=== PATIENT | female | born 1955 | race Caucasian/White ===

== ENCOUNTER → 2022-07-26 | Outpatient (CLI) | payer OTHER ==
[2022-07-26 09:08] LABS: Basophils # (auto) 0 10 ^3/uL (0-0.2); Eosinophils # (auto) 0 10 ^3/uL (0-0.8); Eosinophils % (auto) 1.1 % (0.0-7.0); Hematocrit 42.5 % (36.0-46.0); Hemoglobin 14.6 g/dL (12.2-16.2); Lymphocytes # (auto) 1.3 10 ^3/uL (0.4-5.4); Lymphocytes % (auto) 28.8 % (10.0-50.0); Mean Corpuscular Hemoglobin 32.7 pg (28.0-32.0); Mean Corpuscular Hgb Conc. 34.4 g/dL (32.0-36.0); Mean Corpuscular Volume 95.2 fL (80.0-100.0); Monocytes # (auto) 0.3 10 ^3/uL (0-1.3); Monocytes % (auto) 6.6 % (0.0-12.0); Neutrophils # (auto) 2.9 10 ^3/uL (1.6-8.6); Neutrophils % (auto) 62.5 % (37.0-80.0); Red Blood Cells 4.47 10^6/uL (4.0-5.20); Red Cell Distribution Width 13.8 % (11.8-14.3); White Blood Cell 4.6 10^3/uL (4.4-10.8)
[2022-07-26 09:50] LABS: Potassium 3.6 mmol/L (3.5-5.1)
[2022-07-26 09:57] LABS: Albumin 3.7 g/dL (3.4-5.0); Bilirubin, Total 0.4 mg/dL (0.2-1.0); Calcium 9.1 mg/dL (8.5-10.1); Total Protein 7.5 g/dL (6.4-8.2)
== END | disposition home or self-care (01) ==
LOC: LAB 08:34
PROVIDERS: ATTEND Internal Medicine
DX: K29.60 Other gastritis without bleeding (principal); R79.9 Abnormal finding of blood chemistry, unspecified; E78.5 Hyperlipidemia, unspecified
CPT/HCPCS: 36415; 80053; 82465; 83036; 83718; 83721; 84443; 85025

== ENCOUNTER → 2022-10-19 | Outpatient (CLI) | payer OTHER ==
[2022-10-19 08:52] LABS: Urine Bacteria None Seen /hpf (None Seen); Urine WBC None Seen /hpf (0 - 5)
[2022-10-19 09:01] LABS: Basophils # (auto) 0.1 10 ^3/uL (0-0.2); Basophils % (auto) 1.4 % (0.0-2.0); Eosinophils # (auto) 0.1 10 ^3/uL (0-0.8); Eosinophils % (auto) 1.1 % (0.0-7.0); Hematocrit 43.1 % (36.0-46.0); Hemoglobin 14.6 g/dL (12.2-16.2); Lymphocytes # (auto) 1.5 10 ^3/uL (0.4-5.4); Lymphocytes % (auto) 27.9 % (10.0-50.0); Mean Corpuscular Hemoglobin 32.4 pg (28.0-32.0); Mean Corpuscular Hgb Conc. 33.9 g/dL (32.0-36.0); Mean Corpuscular Volume 95.5 fL (80.0-100.0); Monocytes # (auto) 0.3 10 ^3/uL (0-1.3); Monocytes % (auto) 5.8 % (0.0-12.0); Neutrophils # (auto) 3.4 10 ^3/uL (1.6-8.6); Neutrophils % (auto) 63.8 % (37.0-80.0); Nucleated Red Blood Cells % 0.1 %; Red Blood Cells 4.51 10^6/uL (4.0-5.20); White Blood Cell 5.3 10^3/uL (4.4-10.8)
[2022-10-19 09:33] LABS: Urine Specific Gravity 1.019 (1.001-1.035)
[2022-10-19 09:34] LABS: Urine Blood Negative /uL (Negative)
[2022-10-19 09:48] LABS: Albumin 3.4 g/dL (3.4-5.0); Calcium 8.9 mg/dL (8.5-10.1); Potassium 3.6 mmol/L (3.5-5.1)
[2022-10-19 09:53] LABS: BUN/Creatinine Ratio 23.1 (10.0-20.0); Bilirubin, Total 0.4 mg/dL (0.2-1.0); Total Protein 7.1 g/dL (6.4-8.2)
[2022-10-19 10:01] LABS: Folate (Folic Acid) > 24.00 ng/mL (5.38-24); T3 Total 1.02 ng/mL (0.60-1.81)
== END | disposition home or self-care (01) ==
LOC: LAB 08:43
PROVIDERS: ATTEND Internal Medicine
DX: Z00.00 Encounter for general adult medical examination without abnormal findings (principal); E78.5 Hyperlipidemia, unspecified; H53.9 Unspecified visual disturbance
CPT/HCPCS: 36415; 80053; 80061; 81001; 82306; 82550; 82607; 82746; 84436; 84443; 84480; 85025; 87086

== ENCOUNTER → 2023-03-15 | Outpatient (CLI) | payer OTHER ==
[2023-03-15 12:14] LABS: Basophils # (auto) 0 10 ^3/uL (0-0.2); Basophils % (auto) 0.2 % (0.0-2.0); Eosinophils # (auto) 0.1 10 ^3/uL (0-0.8); Hematocrit 45.5 % (36.0-46.0); Hemoglobin 15.5 g/dL (12.2-16.2); Lymphocytes # (auto) 1.3 10 ^3/uL (0.4-5.4); Lymphocytes % (auto) 25.5 % (10.0-50.0); Mean Corpuscular Hemoglobin 32.7 pg (28.0-32.0); Mean Corpuscular Volume 96.2 fL (80.0-100.0); Monocytes # (auto) 0.3 10 ^3/uL (0-1.3); Monocytes % (auto) 6.1 % (0.0-12.0); Neutrophils # (auto) 3.4 10 ^3/uL (1.6-8.6); Neutrophils % (auto) 67.2 % (37.0-80.0); Nucleated Red Blood Cells % 0.1 %; Red Blood Cells 4.73 10^6/uL (4.0-5.20); Red Cell Distribution Width 13.9 % (11.8-14.3); White Blood Cell 5.1 10^3/uL (4.4-10.8)
[2023-03-15 12:43] LABS: Alanine Aminotransferase 17 U/L (7-40); Alkaline Phosphatase 64 U/L (46-116); Anion Gap 5 (5-15); BUN/Creatinine Ratio 13.9 (10.0-20.0); Blood Urea Nitrogen 10 mg/dL (9-23); Calcium 9.2 mg/dL (8.5-10.1); Carbon Dioxide 32 mmol/L (20-30); Chloride 106 mmol/L (98-107); Glucose 84 mg/dL (74-106); Potassium 3.5 mmol/L (3.5-5.1); Sodium 143 mmol/L (136-145); Triglycerides 61 mg/dL (< 150)
[2023-03-15 12:44] LABS: Albumin 4.2 g/dL (3.2-4.8); Aspartate Aminotransferase 9 U/L (13-40); LDL Cholesterol 115 mg/dL (< 100)
[2023-03-15 12:45] LABS: Bilirubin, Total 0.7 mg/dL (0.2-1.0); Cholesterol 195 mg/dL (< 200); Creatine Kinase IFCC 64 U/L (34-145); HDL Cholesterol 72 mg/dL (40-59); Total Protein 7.3 g/dL (5.7-8.2)
[2023-03-15 14:31] LABS: Lipase 102 U/L (12-53)
== END | disposition home or self-care (01) ==
LOC: LAB 12:02
PROVIDERS: ATTEND Internal Medicine
DX: D47.3 Essential (hemorrhagic) thrombocythemia (principal); E78.5 Hyperlipidemia, unspecified; K29.60 Other gastritis without bleeding; R19.7 Diarrhea, unspecified
CPT/HCPCS: 36415; 80053; 80061; 82550; 83690; 84436; 84443; 85025; 87045; 87177

== ENCOUNTER → 2023-10-01 | Outpatient (CLI) | payer OTHER ==
[2023-10-01 10:56] LABS: Urine Bacteria None Seen /hpf (None Seen)
[2023-10-01 11:09] LABS: Basophils # (auto) 0 10 ^3/uL (0-0.2); Basophils % (auto) 0.7 % (0.0-2.0); Eosinophils # (auto) 0 10 ^3/uL (0-0.8); Eosinophils % (auto) 0.5 % (0.0-7.0); Hematocrit 44.5 % (36.0-46.0); Hemoglobin 14.9 g/dL (12.2-16.2); Lymphocytes # (auto) 1.1 10 ^3/uL (0.4-5.4); Lymphocytes % (auto) 21.6 % (10.0-50.0); Mean Corpuscular Hemoglobin 31.6 pg (28.0-32.0); Mean Corpuscular Hgb Conc. 33.6 g/dL (32.0-36.0); Monocytes # (auto) 0.3 10 ^3/uL (0-1.3); Monocytes % (auto) 5.4 % (0.0-12.0); Neutrophils # (auto) 3.7 10 ^3/uL (1.6-8.6); Neutrophils % (auto) 71.8 % (37.0-80.0); Nucleated Red Blood Cells % 0.1 %; Red Blood Cells 4.73 10^6/uL (4.0-5.20); White Blood Cell 5.2 10^3/uL (4.4-10.8)
[2023-10-01 12:47] LABS: Urine Blood Negative /uL (Negative); Urine Clarity Clear (Clear); Urine Color Light-Yellow (Yellow); Urine Protein, UAD Negative (Negative); Urine Specific Gravity 1.012 (1.001-1.035); Urine Urobilinogen Normal (Negative); Urine WBC <1 /hpf (0 - 5)
== END | disposition home or self-care (01) ==
LOC: LAB 10:44
PROVIDERS: ATTEND Internal Medicine
DX: R53.83 Other fatigue (principal)
CPT/HCPCS: 36415; 81001; 82306; 82607; 84436; 84443; 85025

== ENCOUNTER 2023-11-24 13:55 | Emergency (ER) | payer OTHER ==
[~2023-11-24] VITALS: Ht 154.9 cm; Wt 56.1 kg
[2023-11-24] MEDS: DICYCLOMINE HCL (10MG/ML) 2 ML AMPULE IM ONE (14:57)
[2023-11-24 15:28] LABS: Basophils # (auto) 0 10 ^3/uL (0-0.2); Basophils % (auto) 0.7 % (0.0-2.0); Eosinophils # (auto) 0.1 10 ^3/uL (0-0.8); Eosinophils % (auto) 0.9 % (0.0-7.0); Hematocrit 44.9 % (36.0-46.0); Hemoglobin 15.3 g/dL (12.2-16.2); Lymphocytes # (auto) 1.5 10 ^3/uL (0.4-5.4); Lymphocytes % (auto) 23.3 % (10.0-50.0); Mean Corpuscular Hemoglobin 32.4 pg (28.0-32.0); Mean Corpuscular Volume 95.4 fL (80.0-100.0); Monocytes # (auto) 0.5 10 ^3/uL (0-1.3); Monocytes % (auto) 7.5 % (0.0-12.0); Neutrophils # (auto) 4.3 10 ^3/uL (1.6-8.6); Neutrophils % (auto) 67.6 % (37.0-80.0); Nucleated Red Blood Cells % 0.1 %; Red Cell Distribution Width 14.2 % (11.8-14.3); White Blood Cell 6.4 10^3/uL (4.4-10.8)
[2023-11-24 15:43] LABS: Chloride 107 mmol/L (98-107); Sodium 143 mmol/L (136-145)
[2023-11-24 15:44] LABS: Anion Gap 4 (5-15); Calcium 9.6 mg/dL (8.7-10.4); Carbon Dioxide 32 mmol/L (20-30)
[2023-11-24 15:49] LABS: BUN/Creatinine Ratio 19.4 (10.0-20.0); Blood Urea Nitrogen 14 mg/dL (9-23); Glucose 99 mg/dL (74-106); Lipase 52 U/L (12-53)
[2023-11-24 16:06] LABS: Urine Bacteria FEW /hpf (None Seen); Urine Blood Negative /uL (Negative); Urine Clarity Clear (Clear); Urine Color Yellow (Yellow); Urine Mucus FEW (None Seen); Urine Protein, UAD Negative (Negative); Urine Specific Gravity 1.027 (1.001-1.035); Urine Urobilinogen Normal (Negative); Urine WBC <1 /hpf (0 - 5); Urine pH 5.5 (5.0-9.0)
[2023-11-24 16:57] VITALS: BP 120/69; PULSE 75; RESP 18; TEMP 98.4; O2SAT 97
== END 2023-11-24 16:58 | disposition home or self-care (01) ==
LOC: ER 13:55
DX: R10.84 Generalized abdominal pain (principal)
CPT/HCPCS: 36415; 80048; 81001; 83690; 85025; 96372; 99283; J0500

== ENCOUNTER → 2024-02-26 | Outpatient (CLI) | payer OTHER | END | disposition home or self-care (01) | LOC: LAB 12:21 | PROVIDERS: ATTEND Internal Medicine | DX: N39.0 Urinary tract infection, site not specified (principal) | CPT/HCPCS: 87086 ==

== ENCOUNTER → 2024-03-13 | Outpatient (CLI) | payer OTHER | END | disposition home or self-care (01) | LOC: LAB 12:42 | PROVIDERS: ATTEND Internal Medicine | DX: Z12.11 Encounter for screening for malignant neoplasm of colon (principal) | CPT/HCPCS: 82270 ==

== ENCOUNTER → 2024-06-19 | Outpatient (CLI) | payer MEDICAID ==
[2024-06-19 09:04] LABS: Chloride 103 mmol/L (98-107); Potassium 3.6 mmol/L (3.5-5.1); Sodium 141 mmol/L (136-145)
[2024-06-19 09:05] LABS: Anion Gap 2 (5-15); Calcium 9.5 mg/dL (8.7-10.4)
[2024-06-19 09:10] LABS: BUN/Creatinine Ratio 15.2 (10.0-20.0); Blood Urea Nitrogen 10 mg/dL (9-23); Glucose 93 mg/dL (74-106); Triglycerides 70 mg/dL (< 150)
[2024-06-19 09:11] LABS: Creatinine, Urine 47.01 mg/dL (30.0-125.0)
[2024-06-19 09:13] LABS: Carbon Dioxide 36 mmol/L (20-31); Cholesterol 229 mg/dL (< 200); HDL Cholesterol 74 mg/dL (40-59); LDL Cholesterol 154 mg/dL (< 100)
[2024-06-19 09:15] LABS: Micro Albumin < 3.0 mg/L (<30.0)
== END | disposition home or self-care (01) ==
LOC: LAB 08:17
PROVIDERS: ATTEND Internal Medicine
DX: E78.5 Hyperlipidemia, unspecified (principal); R73.9 Hyperglycemia, unspecified
CPT/HCPCS: 36415; 80048; 80061; 82043; 82570; 83036

== ENCOUNTER → 2024-09-23 | Outpatient (CLI) | payer MEDICAID ==
[2024-09-23 08:40] LABS: Alanine Aminotransferase 17 U/L (7-40); Albumin 4.2 g/dL (3.2-4.8); Alkaline Phosphatase 73 U/L (46-116); Anion Gap 7 (5-15); Aspartate Aminotransferase 16 U/L (13-40); Bilirubin, Total 0.6 mg/dL (0.2-1.0); Blood Urea Nitrogen 9 mg/dL (9-23); Calcium 9.4 mg/dL (8.7-10.4); Carbon Dioxide 31 mmol/L (20-31); Chloride 104 mmol/L (98-107); Glucose 102 mg/dL (74-106); Potassium 3.8 mmol/L (3.5-5.1); Sodium 142 mmol/L (136-145); Triglycerides 46 mg/dL (< 150)
[2024-09-23 08:42] LABS: Cholesterol 225 mg/dL (< 200); HDL Cholesterol 78 mg/dL (40-59); LDL Cholesterol 135 mg/dL (< 100)
== END | disposition home or self-care (01) ==
LOC: LAB 07:25
PROVIDERS: ATTEND Internal Medicine
DX: E03.9 Hypothyroidism, unspecified (principal); E78.5 Hyperlipidemia, unspecified; R73.9 Hyperglycemia, unspecified
CPT/HCPCS: 36415; 80053; 80061; 84436; 84443; 84480

== ENCOUNTER 2024-10-03 13:34 | Inpatient (IN) | payer MEDICAID, OTHER ==
[~2024-10-03] VITALS: Ht 154.9 cm; Wt 67.3 kg
[2024-10-03 15:10] LABS: Basophils # (auto) 0.1 10 ^3/uL (0-0.2); Eosinophils # (auto) 0.1 10 ^3/uL (0-0.8); Eosinophils % (auto) 0.9 % (0.0-7.0); Hematocrit 44.1 % (36.0-46.0); Lymphocytes # (auto) 1.5 10 ^3/uL (0.4-5.4); Lymphocytes % (auto) 25.9 % (10.0-50.0); Mean Corpuscular Hemoglobin 31.8 pg (28.0-32.0); Mean Corpuscular Hgb Conc. 33.9 g/dL (32.0-36.0); Mean Corpuscular Volume 93.6 fL (80.0-100.0); Monocytes # (auto) 0.5 10 ^3/uL (0-1.3); Monocytes % (auto) 7.9 % (0.0-12.0); Neutrophils # (auto) 3.7 10 ^3/uL (1.6-8.6); Neutrophils % (auto) 64.3 % (37.0-80.0); Nucleated Red Blood Cells % 0.2 %; Platelet Count (auto) 130 10^3/uL (140-450); Red Blood Cells 4.71 10^6/uL (4.0-5.20); Red Cell Distribution Width 14.8 % (11.8-14.3); White Blood Cell 5.8 10^3/uL (4.4-10.8)
[2024-10-03 15:24] LABS: Alanine Aminotransferase 19 U/L (7-40); Albumin 4.3 g/dL (3.2-4.8); Alkaline Phosphatase 64 U/L (46-116); Anion Gap 5 (5-15); Aspartate Aminotransferase 16 U/L (13-40); BUN/Creatinine Ratio 22.9 (10.0-20.0); Bilirubin, Total 0.4 mg/dL (0.2-1.0); Blood Urea Nitrogen 16 mg/dL (9-23); Calcium 9.5 mg/dL (8.7-10.4); Chloride 105 mmol/L (98-107); Glucose 103 mg/dL (74-106); Lipase 48 U/L (12-53); Potassium 3.9 mmol/L (3.5-5.1); Sodium 142 mmol/L (136-145); Total Protein 6.9 g/dL (5.7-8.2)
--- NOTE | 2024-10-03 15:25 | DVH ---
INDICATION: PAIN TECHNIQUE: US GALLBLADDER Multiple real-time sonographic images of the abdomen were obtained. COMPARISON: None FINDINGS: The liver is homogenous in echogenicity. The liver measures 14.25 cm. No intrahepatic bili jamshid ductal dilatation is noted. The gallbladder wall measures 0.11 cm and is unremarkable. No gallstones or sludge in the gallbladd er. There does appear to be multiple small polyp. Patient states she has a history of gallbladder quyen yps. The common duct measures 0.49 cm negative sonographic howard's sign is elicited The right kidney measures 10.4 cm. No hydronephrosis. The pancreas is not well visualized due to obscuration from bowel gas. The visualized portions of the IVC and aorta are grossly unremarkable. IMPRESSION: 1. Liver measures 14.25 cm long. 2. Multiple gallbladder polyps negative sonographic Howard's sign.
[2024-10-03 15:26] LABS: Carbon Dioxide 32 mmol/L (20-31)
--- NOTE | 2024-10-03 15:47 | ED.PDOC ---
GI ASSESSMENT HPI Comments This is a 69-year-old female who comes in with chief complaint of abdominal pain. The patient was states that she has been having epigastric pain off and on for the past several years with no radiation. Now she states that the pain has been more persistent and rated as a 5/10. She is currently awaiting some procedures ordered by GI when she was seen by them on 08/19. She denies any nausea, vomiting or diarrhea at this time. The patient was able to ambulate into the emergency department's without any difficulty. Chief Complaint: Abdominal Pain Time Seen by MD: 13:37 Primary Care Provider: MICHAELA Reviewed Notes: Nurses Notes, Medications, Allergies (No allergies to medications) Allergies: Coded Allergies: NO KNOWN ALLERGIES (Unverified , 11/24/23) Information Source: Patient Mode of Arrival: Ambulatory Timing: Months Duration: Intermittent Prehospital treatment: None Quality: Aching, Sharp Vomitus: Bilious Stool: Normal Severity: Moderate Recent: None Recent Hx of: None Pain Location: Epigastric Modifying Factors: Nothing Associated sign and symptoms: Abdominal Pain Past Medical History PAST MEDICAL HISTORY: Anxiety, Gallstones, High Lipids Past Medical History (Other): Gastritis, pancreatitis, diverticulitis Surgical History: Denies all surgeries [employer] History: No Pertinent [employer] History Family History Family History: Reviewed,noncontributory to illness, No family hx of Cancer, No family hx of DM, No family hx of Heart genny, No family hx of HTN, No family hx ofKidney genny, No family hx of Liver genny, No family hx of Lung genny, No family hx of Stroke Social History Smoker: Non-Smoker Alcohol: Denies ETOH Use Drugs: Denies Drug Use Lives In: Home Constitutional: denies: chills, diaphoresis, fatigue, fever, malaise, sweats, weakness, others EENTM: denies: blurred vision, double vision, ear bleeding, ear discharge, ear drainage, ear pain, ear ringing, eye pain, eye redness, hearing loss, mouth pain, mouth swelling, nasal discharge, nose bleeding, nose congestion, nose pain, photophobia, tearing, throat pain, throat swelling, voice changes, others Respiratory: denies: cough, hemoptysis, orthopnea, SOB at rest, shortness of breath, SOB with excertion, stridor, wheezing, others Cardiovascular: denies: chest pain, dizzy spells, diaphoresis, Dyspnea on exertion, edema, irregular heart beat, left arm pain, lightheadedness, palpitations, PND, syncope, others Gastrointestinal: reports: abdominal pain; denies: abdomen distended, blood streaked bowels, constipated, diarrhea, dysphagia, difficulty swallowing, hematemesis, melena, nausea, poor appetite, poor fluid intake, rectal bleeding, rectal pain, vomiting, others Genitourinary: denies: abnormal vagina bleeding, burning, dyspareunia, dysuria, flank pain, frequency, hematuria, incontinence, pain, , vagina discharge, urgency, others Neurological: denies: dizziness, fainting, headache, left sided numbness, left sided weakness, numbness, paresthesia, pre-existing deficit, right sided numbness, right sided weakness, seizure, speech problems, tingling, tremors, weakness, others Musculoskeletal: denies: back pain, gout, joint pain, joint swelling, muscle pain, muscle stiffness, neck pain, others Integumetry: denies: bruises, change in color, change in hair/nails, dryness, laceration, lesions, lumps, rash, wounds, others Allergic/Immunocompromised: denies: Difficulty Healing, Frequent Infections, Hives, Itching, others Hematologic/Lymphatic: denies: anemia, blood clots, easy bleeding, easy bruising, swollen glands, others Endocrine: denies: excessive hunger, excessive sweating, excessive thirst, excessive urination, flushing, intolerance to cold, intolerance to heat, unexplained weight gain, unexplained weight loss, others Psychiatric: denies: anxiety, bipolar disorder, depression, hopeless, panic disorder, schizophrenia, sleepless, suicidal, others Physical Exam General Appearance: Moderate Distress HEENT: Normal ENT Inspection, Pharynx Normal, TMs Normal Neck: Full Range of Motion, Non-Tender, Normal, Normal Inspection Respiratory: Chest Non-Tender, Lungs Clear, No Accessory Muscle Use, No Respiratory Distress, Normal Breath Sounds Cardiovascular: No Edema, No JVD, No Murmur, No Gallop, Normal Peripheral Pulses, Regular Rate/Rhythm Breast Exam: Deferred Gastrointestinal: Epigastric, No Organomegaly, No Pulsatile Mass, Normal Bowel Sounds, Soft, Tenderness Genitalia: Deferred Pelvic: Deferred Rectal: Deferred Extremities: No calf tenderness, Normal capillary refill, Normal inspection, Normal range of motion, Non-tender, No pedal edema Musculoskeletal : Apperance: Normal Neurologic: Alert, mercury washer II-XII nml as Tested, Motor Weakness, Normal Affect, Normal Mood, No Sensory Deficits Cerebellar Function: Normal Reflexes: Normal Skin: Dry, Normal Color, Warm Lymphatic: No Adenopathy Was a procedure done? Was a procedure done?: No GI differential Dx Differential Diagnosis: Appendicitis, Cholangitis, Cholecystitis, Gas tritis/PUD, Gastroenteritis, Pancreatitis, UTI, Electrolyte Imbalance X-Ray, Labs, Meds, VS Vital Signs Date Time Temp Pulse Resp B/P (MAP) Pulse Ox O2 Delivery O2 Flow Rate FiO2 10/03/24 13:50 99.5 71 16 147/94 (111) 94 99.5 Lab Test 10/03/24 14:46 Range/Units White Blood Count 5.8 4.4-10.8 10^3/uL Red Blood Count 4.71 4.0-5.20 10^6/uL Hemoglobin 15.0 12.2-16.2 g/dL Hematocrit 44.1 36.0-46.0 % Mean Corpuscular Volume 93.6 80.0-100.0 fL Mean Corpuscular Hemoglobin 31.8 28.0-32.0 pg Mean Corpuscular Hemoglobin Concent 33.9 32.0-36.0 g/dL Red Cell Distribution Width 14.8 H 11.8-14.3 % Platelet Count 130 L 140-450 10^3/uL Mean Platelet Volume 9.5 6.9-10.8 fL Neutrophils (%) (Auto) 64.3 37.0-80.0 % Lymphocytes (%) (Auto) 25.9 10.0-50.0 % Monocytes (%) (Auto) 7.9 0.0-12.0 % Eosinophils (%) (Auto) 0.9 0.0-7.0 % Basophils (%) (Auto) 1.0 0.0-2.0 % Neutrophils # (Auto) 3.7 1.6-8.6 10 ^3/uL Lymphocytes # (Auto) 1.5 0.4-5.4 10 ^3/uL Monocytes # (Auto) 0.5 0-1.3 10 ^3/uL Eosinophils # (Auto) 0.1 0-0.8 10 ^3/uL Basophils # (Auto) 0.1 0-0.2 10 ^3/uL Nucleated Red Blood Cells 0.2 % Sodium Level 142 136-145 mmol/L Potassium Level 3.9 3.5-5.1 mmol/L Chloride Level 105 98-107 mmol/L Carbon Dioxide Level 32 H 20-31 mmol/L Anion Gap 5 5-15 Blood Urea Nitrogen 16 9-23 mg/dL Creatinine 0.70 0.550-1.02 mg/dL Glomerular Filtration Rate Calc 94 >90 mL/min BUN/Creatinine Ratio 22.9 H 10.0-20.0 Serum Glucose 103 74-106 mg/dL Calcium Level 9.5 8.7-10.4 mg/dL Total Bilirubin 0.4 0.2-1.0 mg/dL Aspartate Amino Transferase (AST) 16 13-40 U/L Alanine Aminotransferase (ALT) 19 7-40 U/L Alkaline Phosphatase 64 46-116 U/L Total Protein 6.9 5.7-8.2 g/dL Albumin 4.3 3.2-4.8 g/dL Lipase 48 12-53 U/L Ultrasound of the gallbladder shows: IMPRESSION: 1. Liver measures 14.25 cm long. 2. Multiple gallbladder polyps negative sonographic Howard's sign. The patient's CBC and chemistry panel are within normal limits. The lipase is within normal limits An IV Hep-Lock is being established The patient was given Zofran 4 mg IV push for the nausea The patient was given Protonix 40 mg IV push for the pain The patient was being admitted to the hospitalist at this time. Images Reviewed?: Images reviewed and evaluated by me Time of 1ST Reevaluation: 16:06 Reevaluation 1ST: Unchanged Patient Education/Counseling: Diagnosis, Treatment, Prognosis Family Education/Counseling: No Family Present Departure 1 Departure Time of Disposition: 16:07 Impression: Primary Impression: Intractable abdominal pain Additional Impression: Polyp of gallbladder Disposition: 09 ADMITTED INPATIENT Admit to: Med Surg Condition: Fair Critical Care Note Critical Care Time?: No Stability Stability form required: Yes Unstable for transfer: ED Physician Assesment (Clinical assesment) Heart Score Heart Score: Heart Score Response (Comments) Value History N/A 0 EKG N/A 0 Age N/A 0 Risk Factors N/A 0 Troponin N/A 0 Total 0 DARNELL MOSLEY MD October 03, 2024 15:47
[2024-10-03 20:43] LABS: Urine Bacteria None Seen /hpf (None Seen)
[2024-10-03 20:49] LABS: Urine Blood Negative /uL (Negative); Urine Clarity Clear (Clear); Urine Color Yellow (Yellow); Urine Mucus FEW (None Seen); Urine Protein, UAD Negative (Negative); Urine Specific Gravity 1.026 (1.001-1.035); Urine Squamous Epithelial Cell FEW /hpf (<5); Urine Urobilinogen Normal (Negative); Urine WBC 1 /HPF (0-5); Urine pH 5.5 (5.0-9.0)
[2024-10-03] MEDS ORDERED: DICYCLOMINE HCL 10 MG CAP PO PRN (23:15)
[2024-10-03] MEDS ORDERED: ACETAMINOPHEN 325 MG TAB PO PRN (23:15)
[2024-10-03] MEDS ORDERED: ONDANSETRON HCL 4 MG/2 ML VIAL IV PRN (23:15)
--- NOTE | 2024-10-03 23:21 | DVHHPRES ---
History of Present Illness Resident Creating Document: JOSÉ MIGUEL CROWLEY RESIDENT History of Present Illness Patient is a 69-year-old female with past medical history of fibromyalgia, hypertension, dyslipidemia, gastritis, pancreatitis 4 years ago, who comes in due to intractable abdominal pain. Patient localizes the pain to mid abdomen, 9/10 in intensity and burning in nature without any radiation, per patient pain is worsened on starvation in partially relieved by eating. Patient seems quite anxious about her symptoms. According to the patient, she called her GI doctor' s office and was told to go to the ER. Review of systems is all negative. Gallbladder ultrasound showed liver measuring 14.25 cm long, multiple gallbladder polyps and negative sonographic Howard's sign. CT abdomen pelvis from 09/04/2024 shows no acute abdominal or pelvic findings. Sigmoid diverticulosis. Past Medical History fibromyalgia, hypertension, dyslipidemia, gastritis, pancreatitis 4 years ago Past Surgical History Carpal tunnel release surgery, left oophorectomy Smoke: No ALCOHOL: none Drugs: None Review of Systems Constitutional: No: Fever, Chills, Sweats, Weakness, Malaise, Other Eyes: No: Pain, Vision change, Conjunctivae inflammation, Eyelid inflammation, Other, Redness ENT: No: Ear pain, Ear discharge, Nose pain, Nose discharge, Nose congestion, Mouth pain, Mouth swelling, Throat pain, Throat swelling, Other Respiratory: No: Cough, Dry, Shortness of breath, SOB with excertion, Wheezing, Hemoptysis, Pleuritic Pain, Sputum, Wheezing, Other Cardiovascular: No: Chest Pain, Palpitations, Orthopnea, Paroxysmal Noc. Dyspne a, Edema, Lt Headedness, Other Gastrointestinal: No: Nausea, Vomiting, Abdominal Pain, Diarrhea, Constipation, Melena, Hematochezia, Other Genitourinary: No Dysuria, No Frequency, No Incontinence, No Hematuria, No Retention, No Other Musculoskeletal: No: other, neck pain, shoulder pain, arm pain, back pain, hand pain, leg pain, foot pain Skin: No: Rash, Lesions, Jaundice, Bruising, Other Neurological: No: Weakness, Numbness, Incoordination, Change in speech, Confusion, Seizures, Other Allergies: Coded Allergies: Duloxetine (Verified Allergy, Unknown, 10/04/24) rash Venlafaxine (Verified Allergy, Unknown, 10/04/24) rash Medications Current Medications Medications Dose Ordered Sig/John Route Start Time Stop Time Status Last Admin Dose Admin Acetaminophen 325 mg Q4HP PRN PO 10/03/24 23:15 UNV Ondansetron HCl 4 mg Q4HP PRN IV 10/03/24 23:15 UNV Exam Vital Signs Vital Signs Date Time Temp Pulse Resp B/P (MAP) Pulse Ox O2 Delivery O2 Flow Rate FiO2 10/03/24 19:53 98.6 70 20 133/89 (104) 96 98.6 General Appearance: Alert, Oriented X3, Cooperative, No acute distress HEENT: Atraumatic, PERRLA, EOMI, Other (Dry mucous membrane) Respiratory: Clear to auscultation, Normal air movement Cardiovascular: Normal S1, Normal S2 Abdominal: Normal bowel sounds, Soft, Other (Midepigastric tenderness to deep palpation) Extremities: No edema Skin: No significant lesion Neuro: Normal gait, Strength at 5/5 X4 ext, Sensation intact Psych/Mental Status: Mental status NL, Mood NL Labs/Xrays Labs Test 10/03/24 20:30 10/03/24 14:46 Range/Units Urine Color Yellow Yellow Urine Clarity Clear Clear Urine pH 5.5 5.0-9.0 Urine Specific [place] 1.026 1.001-1.035 Urine Protein Negative Negative Urine Ketones 1+ H Negative Urine Blood Negative Negative /uL Urine Nitrite Negative Negative Urine Bilirubin Negative Negative Urine Urobilinogen Normal Negative mg/dL Urine Leukocyte Esterase Negative Negative /uL Urine RBC 2 0 - 4 /hpf Urine Microscopic WBC 1 0-5 /HPF Urine Squamous Epithelial Cells Few <5 /hpf Urine Bacteria None seen None Seen /hpf Urine Mucus Few None Seen Urine Glucose Normal Normal mg/dL White Blood Count 5.8 4.4-10.8 10^3/uL Red Blood Count 4.71 4.0-5.20 10^6/uL Hemoglobin 15.0 12.2-16.2 g/dL Hematocrit 44.1 36.0-46.0 % Mean Corpuscular Volume 93.6 80.0-100.0 fL Mean Corpuscular Hemoglobin 31.8 28.0-32.0 pg Mean Corpuscular Hemoglobin Concent 33.9 32.0-36.0 g/dL Red Cell Distribution Width 14.8 H 11.8-14.3 % Platelet Count 130 L 140-450 10^3/uL Mean Platelet Volume 9.5 6.9-10.8 fL Neutrophils (%) (Auto) 64.3 37.0-80.0 % Lymphocytes (%) (Auto) 25.9 10.0-50.0 % Monocytes (%) (Auto) 7.9 0.0-12.0 % Eosinophils (%) (Auto) 0.9 0.0-7.0 % Basophils (%) (Auto) 1.0 0.0-2.0 % Neutrophils # (Auto) 3.7 1.6-8.6 10 ^3/uL Lymphocytes # (Auto) 1.5 0.4-5.4 10 ^3/uL Monocytes # (Auto) 0.5 0-1.3 10 ^3/uL Eosinophils # (Auto) 0.1 0-0.8 10 ^3/uL Basophils # (Auto) 0.1 0-0.2 10 ^3/uL Nucleated Red Blood Cells 0.2 % Sodium Level 142 136-145 mmol/L Potassium Level 3.9 3.5-5.1 mmol/L Chloride Level 105 98-107 mmol/L Carbon Dioxide Level 32 H 20-31 mmol/L Anion Gap 5 5-15 Blood Urea Nitrogen 16 9-23 mg/dL Creatinine 0.70 0.550-1.02 mg/dL Glomerular Filtration Rate Calc 94 >90 mL/min BUN/Creatinine Ratio 22.9 H 10.0-20.0 Serum Glucose 103 74-106 mg/dL Calcium Level 9.5 8.7-10.4 mg/dL Total Bilirubin 0.4 0.2-1.0 mg/dL Aspartate Amino Transferase (AST) 16 13-40 U/L Alanine Aminotransferase (ALT) 19 7-40 U/L Alkaline Phosphatase 64 46-116 U/L Total Protein 6.9 5.7-8.2 g/dL Albumin 4.3 3.2-4.8 g/dL Lipase 48 12-53 U/L Assessment/Plan Assessment/Plan Acute intractable abdominal pain possibly due to a gastric ulcer? ? History of gastritis History of fibromyalgia History of pancreatitis History of gallbladder polyps - GB ultrasound: Liver measures 14.25 cm long. Multiple gallbladder polyps negative sonographic Howard's sign. - CT abdomen pelvis from 09/04/2024: No acute abdominal or pelvic findings. Sigmoid diverticulosis. - serum lipase 48 - IV NS at 75 cc/hour - dicyclomine 10 mg t.i.d. as needed - IV Zofran as needed - IV Protonix - 1 g Carafate t.i.d. - full liquid diet - GI consulted for possible EGD - resumed home medication citalopram PUD prophylaxis: protonix 40mg DVT prophylaxis: Levonox 40mg Goals of care: Full code, discussed for >16 minutes on 10/03/2024 Plan discussed with patient Plan discussed with Dr. Eng Plan discussed with: Patient, Other (RN) My Orders Orders - JOSÉ MIGUEL CROWLEY RESIDENT Procedure Category Date Status Time Admit ADMIT 10/03/24 Transmitted 23:02 Allergies MERCEDES 10/03/24 In Process 23:02 Code Status CODE 10/03/24 Transmitted 23:02 Acetaminophen Tablet PHA 10/03/24 Logged (Tylenol Tablet) 23:15 Ondansetron Hcl PHA 10/03/24 Logged (Zofran) 23:15 Enoxaparin Sodium PHA 10/04/24 Transmitted (Lovenox) 10:00 Complete Blood Count LAB 10/04/24 Verified 04:00 Comprehensive LAB 10/04/24 Verified Metabolic Panel 04:00 Cardiac DIET 10/04/24 Transmitted Diet-2gna,Lofat,Lochol Breakfast Condition: Unstable MERCEDES 10/03/24 In Process 23:02 Notify Of Changes MERCEDES 10/03/24 In Process From Base 23:02 Get List Of Home ORDERS 10/03/24 Transmitted Medications 23:02 Document Home Meds ED NURSING 10/03/24 Transmitted Dicyclomine Capsule PHA 10/03/24 Transmitted (Bentyl Capsule) 23:15 Dicyclomine Capsule PHA 10/03/24 Transmitted (Bentyl Capsule) 23:15 Sucralfate Susp PHA 10/04/24 Transmitted (Carafate Susp) 06:00 Pantoprazole PHA 10/04/24 Transmitted (Protonix) 10:00 Pantoprazole PHA 10/03/24 Transmitted (Protonix) 23:15 NS PHA 10/03/24 Transmitted 23:15 Covid19 Antigen [place] LAB 10/03/24 Transmitted Rapid Influenza A&B LAB 10/03/24 Transmitted 23:07 Date of Service: October 03, 2024 Billing Provider: DANETTE ENG MD Common Visit Codes: 97272-[id number] INP/OBS CARE (HIGH) JOSÉ MIGUEL CROWLEY RESIDENT October 03, 2024 23:21
[2024-10-04] MEDS: PANTOPRAZOLE 40 MG/10 ML VIAL INJ IV ONE (00:02)
[2024-10-04] MEDS: CITALOPRAM HYDROBR 20 MG TAB PO ONE (00:11)
[2024-10-04] MEDS: DICYCLOMINE HCL 10 MG CAP PO ONE (00:12)
[2024-10-04 00:31] LABS: COVID19 ANTIGEN SOFIA FIA NEGATIVE (NEGATIVE); Rapid Influenza A Negative (Negative); Rapid Influenza B Negative (Negative)
[2024-10-04 01:59] VITALS: BP 137/69; PULSE 54; RESP 18; TEMP 98; O2SAT 96
[2024-10-04 02:19] VITALS: BP 137/69; PULSE 54; RESP 18; TEMP 98; O2SAT 96
[2024-10-04] MEDS ORDERED: OMEP20TA PO ×2 (02:21→13:55)
[2024-10-04] MEDS ORDERED: CITA-77 PO (02:21)
[2024-10-04] MEDS: SODIUM CHLORIDE 0.9% 1,000 ML IV ONE (02:36)
[2024-10-04 05:00] VITALS: BP 130/80; PULSE 72; RESP 18; TEMP 98.1; O2SAT 96
[2024-10-04] MEDS: SUCRALFATE 1 GM/10 ML ORAL SUSP PO SCH (05:28)
[2024-10-04 08:00] VITALS: O2SAT 96
[2024-10-04 09:00] VITALS: BP 151/82; PULSE 72; RESP 18; TEMP 98.1; O2SAT 96
[2024-10-04] MEDS: CITALOPRAM HYDROBR 20 MG TAB PO SCH (09:50)
[2024-10-04] MEDS: PANTOPRAZOLE 40 MG/10 ML VIAL INJ IV SCH (09:50)
[2024-10-04 09:51] LABS: Basophils # (auto) 0.1 10 ^3/uL (0-0.2); Basophils % (auto) 1.1 % (0.0-2.0); Eosinophils # (auto) 0 10 ^3/uL (0-0.8); Eosinophils % (auto) 0.7 % (0.0-7.0); Hematocrit 42.9 % (36.0-46.0); Hemoglobin 14.6 g/dL (12.2-16.2); Lymphocytes # (auto) 1.1 10 ^3/uL (0.4-5.4); Mean Corpuscular Volume 93.9 fL (80.0-100.0); Monocytes # (auto) 0.4 10 ^3/uL (0-1.3); Neutrophils # (auto) 3.5 10 ^3/uL (1.6-8.6); Neutrophils % (auto) 69.2 % (37.0-80.0); Platelet Count (auto) 120 10^3/uL (140-450); Red Blood Cells 4.57 10^6/uL (4.0-5.20); Red Cell Distribution Width 14.1 % (11.8-14.3); White Blood Cell 5.1 10^3/uL (4.4-10.8)
[2024-10-04] MEDS: ENOXAPARIN SOD 40 MG/0.4 ML SYRINGE SC SCH (09:51)
[2024-10-04 10:09] LABS: Alanine Aminotransferase 17 U/L (7-40); Albumin 3.8 g/dL (3.2-4.8); Alkaline Phosphatase 53 U/L (46-116); Anion Gap 8 (5-15); Aspartate Aminotransferase 15 U/L (13-40); BUN/Creatinine Ratio 17.6 (10.0-20.0); Blood Urea Nitrogen 12 mg/dL (9-23); Calcium 9.2 mg/dL (8.7-10.4); Carbon Dioxide 30 mmol/L (20-31); Chloride 105 mmol/L (98-107); Potassium 3.8 mmol/L (3.5-5.1); Sodium 143 mmol/L (136-145); Total Protein 6.5 g/dL (5.7-8.2)
[2024-10-04 10:10] LABS: Bilirubin, Total 0.7 mg/dL (0.2-1.0); Glucose 125 mg/dL (74-106)
--- NOTE | 2024-10-04 11:30 | DVHINCON2 ---
Date of service: October 04, 2024 Referring Physician Patrick Truong Reason for Consultation Abdominal pain History of Present Illness Patient is a 69-year-old female with past medical history significant for hyperlipidemia, anxiety, history of pancreatitis four years ago, been having intractable abdominal pain called her GI doctor's office and was sent to the emergency room. Patient noted to have gallbladder polyps on imaging. Patient states that she has to have outpatient workup for endoscopy and colonoscopy in February. Patient denies any hematemesis, fevers, chills, chest pain or shortness of breath. The pain is better today. Patient states that the pain goes away when she eats. She denies any prior history of peptic ulcer disease. Patient denies any melena or hematochezia. GI consultation was obtained for evaluation. Past Medical History As above Past Surgical History oophorectomy and carpal tunnel surgery Family History: Cardiomyopathy Hypertension Family History No gastrointestinal diseases or malignancies Allergies: Coded Allergies: Duloxetine (Verified Allergy, Unknown, 10/04/24) rash Venlafaxine (Verified Allergy, Unknown, 10/04/24) rash Home Meds Reported Medications Citalopram Hydrobromide (Citalopram Hydrobromide) 20 Mg Tab, 20 MG PO DAILY for 30 Days, MG 10/04/24 Omeprazole (Gnp Omeprazole) 20 Mg Tab, 40 MG PO DAILY, TAB 10/04/24 Current Medications Current Medications Medications (Trade) Dose Ordered Sig/John Route PRN Reason Start Time Stop Time Status Last Admin Acetaminophen (Tylenol Tablet) 325 mg Q4HP PRN PO MILD PAIN (1-3 PAIN SCALE) 10/03/24 23:15 Ondansetron HCl (Zofran) 4 mg Q4HP PRN IV NAUSEA / VOMITING 10/03/24 23:15 Enoxaparin Sodium (Lovenox) 40 mg DAILY SC 10/04/24 10:00 10/04/24 09:51 Dicyclomine HCl (Bentyl Capsule) 10 mg TID PRN PO abdominal pain 10/03/24 23:15 Sucralfate (Carafate Susp) 1 gm TID@0600,1130,2200 PO 10/04/24 06:00 10/04/24 05:28 Pantoprazole Sodium (Protonix) 40 mg DAILY IV 10/04/24 10:00 Citalopram Hydrobromide (CeleXA TABLET) 20 mg DAILY PO 10/04/24 10:00 Review of Systems Twelve point review of systems negative other than HPI Vital Signs Vital Signs Date Time Temp Pulse Resp B/P (MAP) Pulse Ox O2 Delivery O2 Flow Rate FiO2 10/04/24 09:00 98.1 72 18 151/82 (105) 96 98.1 10/04/24 02:19 Room Air* 0 21 Physical Exam General: Alert and oriented x4 no distress HEENT: NC/AT the ICU made as PERRLA gastropathy clear Heart: Regular rate and rhythm Abdomen: Soft nontender nondistended normoactive bowel sounds Extremities: No clubbing cyanosis or edema Labs/Diagnostic Data Gallbladder IMPRESSION: 1. Liver measures 14.25 cm long. 2. Multiple gallbladder polyps negative sonographic Howard's sign. Labs Test 10/04/24 09:35 10/03/24 23:45 10/03/24 20:30 10/03/24 14:46 Range/Units White Blood Count 5.1 4.4-10.8 10^3/uL Red Blood Count 4.57 4.0-5.20 10^6/uL Hemoglobin 14.6 12.2-16.2 g/dL Hematocrit 42.9 36.0-46.0 % Mean Corpuscular Volume 93.9 80.0-100.0 fL Mean Corpuscular Hemoglobin 32.0 28.0-32.0 pg Mean Corpuscular Hemoglobin Concent 34.0 32.0-36.0 g/dL Red Cell Distribution Width 14.1 11.8-14.3 % Platelet Count 120 L 140-450 10^3/uL Mean Platelet Volume 9.3 6.9-10.8 fL Neutrophils (%) (Auto) 69.2 37.0-80.0 % Lymphocytes (%) (Auto) 22.0 10.0-50.0 % Monocytes (%) (Auto) 7.0 0.0-12.0 % Eosinophils (%) (Auto) 0.7 0.0-7.0 % Basophils (%) (Auto) 1.1 0.0-2.0 % Neutrophils # (Auto) 3.5 1.6-8.6 10 ^3/uL Lymphocytes # (Auto) 1.1 0.4-5.4 10 ^3/uL Monocytes # (Auto) 0.4 0-1.3 10 ^3/uL Eosinophils # (Auto) 0 0-0.8 10 ^3/uL Basophils # (Auto) 0.1 0-0.2 10 ^3/uL Nucleated Red Blood Cells 0.0 % Sodium Level 143 136-145 mmol/L Potassium Level 3.8 3.5-5.1 mmol/L Chloride Level 105 98-107 mmol/L Carbon Dioxide Level 30 20-31 mmol/L Anion Gap 8 5-15 Blood Urea Nitrogen 12 9-23 mg/dL Creatinine 0.68 0.550-1.02 mg/dL Glomerular Filtration Rate Calc 94 >90 mL/min BUN/Creatinine Ratio 17.6 10.0-20.0 Serum Glucose 125 H 74-106 mg/dL Calcium Level 9.2 8.7-10.4 mg/dL Total Bilirubin 0.7 0.2-1.0 mg/dL Aspartate Amino Transferase (AST) 15 13-40 U/L Alanine Aminotransferase (ALT) 17 7-40 U/L Alkaline Phosphatase 53 46-116 U/L Total Protein 6.5 5.7-8.2 g/dL Albumin 3.8 3.2-4.8 g/dL Influenza Type A Antigen Negative Negative Influenza Type B Antigen Negative Negative SARS-CoV-2 Antigen (Rapid) Negative NEGATIVE Urine Color Yellow Yellow Urine Clarity Clear Clear Urine pH 5.5 5.0-9.0 Urine Specific [place] 1.026 1.001-1.035 Urine Protein Negative Negative Urine Ketones 1+ H Negative Urine Blood Negative Negative /uL Urine Nitrite Negative Negative Urine Bilirubin Negative Negative Urine Urobilinogen Normal Negative mg/dL Urine Leukocyte Esterase Negative Negative /uL Urine RBC 2 0 - 4 /hpf Urine Microscopic WBC 1 0-5 /HPF Urine Squamous Epithelial Cells Few <5 /hpf Urine Bacteria None seen None Seen /hpf Urine Mucus Few None Seen Urine Glucose Normal Normal mg/dL Lipase 48 12-53 U/L Assessment 1. Intractable abdominal pain which has resolved 2. Gallbladder polyps 3. Normal labs Problems(with codes): (1) Abdominal pain (2) Polyp of gallbladder (3) Intractable abdominal pain Plan/Recommendation 1. Pain has resolved were discharge the patient home as long as she is tolerating 2. Patient will need her endoscopy and/or colonoscopy to removed up 3. Proton pump inhibitor daily half an hour before meals 4. Reassurance 5. Outpatient follow up with her GI doctor Plan discussed with: Patient DEMETRIO VEGA MD October 04, 2024 11:30
[2024-10-04 12:53] VITALS: BP 149/84; PULSE 76; RESP 19; TEMP 98.1; O2SAT 97
== END 2024-10-04 16:43 | disposition home or self-care (01) | DRG 446 ==
LOC: ER 13:34 → OVERFLOW 23:02 → CENTRAL 23:07
PROVIDERS: ATTEND Emergency Medicine
DX: K82.4 Cholesterolosis of gallbladder (principal); F41.9 Anxiety disorder, unspecified; M79.7 Fibromyalgia; E78.5 Hyperlipidemia, unspecified; Z20.822 Contact with and (suspected) exposure to COVID-19; K57.30 Diverticulosis of large intestine without perforation or abscess without bleeding; Z82.49 Family history of ischemic heart disease and other diseases of the circulatory system; Z88.1 Allergy status to other antibiotic agents; Z79.899 Other long term (current) drug therapy
CPT/HCPCS: 36415; 76705; 80053; 81001; 83690; 85025; 87426; 87804; G0378; J2470

== ENCOUNTER 2024-12-31 07:44 | Outpatient (CLI) | payer MEDICAID ==
[~2024-12-31 07:44] MED LIST: CITA-77 PO; OMEP20TA PO
[2024-12-31 08:20] LABS: Hematocrit 44.8 % (36.0-46.0); Hemoglobin 15.2 g/dL (12.2-16.2); Mean Corpuscular Hemoglobin 32.4 pg (28.0-32.0); Mean Corpuscular Volume 95.6 fL (80.0-100.0); Nucleated Red Blood Cells % 0.1 %
[2024-12-31 08:21] LABS: Urine Protein, UAD Negative (Negative)
[2024-12-31 09:12] LABS: Alanine Aminotransferase 20 U/L (7-40); Albumin 4.3 g/dL (3.2-4.8); Alkaline Phosphatase 70 U/L (46-116); Anion Gap 7 (5-15); BUN/Creatinine Ratio 17.4 (10.0-20.0); Bilirubin, Total 0.7 mg/dL (0.2-1.0); Blood Urea Nitrogen 12 mg/dL (9-23); Calcium 9.4 mg/dL (8.7-10.4); Chloride 104 mmol/L (98-107); Glucose 94 mg/dL (74-106); Potassium 4.1 mmol/L (3.5-5.1); Sodium 143 mmol/L (136-145); Total Protein 7.1 g/dL (5.7-8.2); Triglycerides 86 mg/dL (< 150)
[2024-12-31 09:18] LABS: Microalb/Creat Ratio, Urine < 5.00
[2024-12-31 09:19] LABS: Carbon Dioxide 32 mmol/L (20-31); Cholesterol 228 mg/dL (< 200); HDL Cholesterol 74 mg/dL (40-59)
== END 2024-12-31 17:00 | disposition home or self-care (01) ==
LOC: LAB 07:44
PROVIDERS: ATTEND Internal Medicine
DX: E78.5 Hyperlipidemia, unspecified (principal); R73.9 Hyperglycemia, unspecified; E03.9 Hypothyroidism, unspecified; R53.83 Other fatigue; R30.0 Dysuria
CPT/HCPCS: 36415; 80053; 80061; 81001; 82043; 82570; 83036; 84436; 84443; 84480; 85025; 87086